=== PATIENT | male | born 1930 | race Caucasian/White ===

== ENCOUNTER 2017-02-24 11:59 | Outpatient (CLI) | payer MEDICARE, BC ==
[2017-02-24] VITALS (8 sets, daily range): BP systolic 139–175; BP diastolic 70–87; PULSE 51–62; RESP 11–17; TEMP 97.4–97.8; O2SAT 95–99; Ht 185.4 cm; Wt 84.3 kg
[~2017-02-24] VITALS: Ht 185.4 cm; Wt 84.3 kg
[~2017-02-24 11:59] MED LIST: ASPI-558 PO; CIPR-151 PO; DOXA2TAB46 PO; LISI-15 PO; NORMAL SALINE 1,000 ML IV SCH; PRAV40TA46 PO
--- NOTE | 2017-02-24 12:15 | NUR ---
ADMISSION PATIENT ADMITTED TO ROOM 120 AT THIS TIME. PT AMBULATORY. PT APPEARS TO BE IN NO ACUTE DISTRESS. A/OX3. FAMILY AT BEDSIDE. PT GIVEN INSTRUCTIONS ON GOWN/SOCKS. WILL CONTINUE TO MONITOR.
[2017-02-24] MEDS ORDERED: LISI40TA4 PO (12:36)
[2017-02-24] MEDS ORDERED: CARV12.52 PO (12:36)
[2017-02-24] MEDS ORDERED: SPIR25TA4 PO (12:36)
[2017-02-24] MEDS ORDERED: LIDOCAINE 1% (10mg/ml) 30ml SDV ONE (12:36)
[2017-02-24] MEDS ORDERED: LUTE6CAP2 PEG (12:36)
[2017-02-24] MEDS ORDERED: HEPARIN 1,000units in NS 500ml BAG IV ONE (12:36)
[2017-02-24] MEDS ORDERED: MIDAZOLAM 2mg/2ml INJECTION ONE (13:13)
[2017-02-24] MEDS ORDERED: FENTANYL 100mcg/2ml INJECTION ONE (13:13)
[2017-02-24 13:23] LABS: BASOPHILS % (AUTO) 0.2 % (0-2); EOSINOPHILS # (AUTO) 0.4 T/MM3 (0-0.5); EOSINOPHILS % (AUTO) 6.5 % (0-4); HCT - HEMATOCRIT 38.5 % (41-53); HGB - HEMOGLOBIN 12.6 GM/DL (13.5-17.5); IMMATURE GRANULOCYTE # (AUTO) 0.01 T/MM3 (0.00-0.03); IMMATURE GRANULOCYTE % (AUTO) 0.2 % (0.0-0.5); LYMPHOCYTES # (AUTO) 1.5 T/MM3 (1-4.8); LYMPHOCYTES % (AUTO) 25.2 % (23-45); MEAN CORPUSCULAR HGB 29.9 UUG (26-34); MEAN CORPUSCULAR HGB CONC(MCHC 32.7 GM/DL (31-37); MEAN CORPUSCULAR VOLUME 91.2 UM3 (80-100); MEAN PLATELET VOLUME 10.2 UM3 (9.4-12.4); MONOCYTES # (AUTO) 0.7 T/MM3 (0-0.8); MONOCYTES % (AUTO) 11.8 % (0-9.0); NEUTROPHILS #(AUTO)-ABSOLUTE 3.4 T/MM3 (1.8-7.7); NEUTROPHILS % (AUTO) 56.1 % (33-66); RED BLOOD COUNT 4.22 M/MM3 (4.50-5.90)
[2017-02-24 13:29] LABS: ANION GAP 11 MEQ/L (5-15); BUN/CREATININE RATIO 36 RATIO (6-26); CALCIUM 9.6 MG/DL (8.4-10.2); CHLORIDE 111 MEQ/L (98-107); CO2 - CARBON DIOXIDE 25 MEQ/L (22-30); CREATININE 0.8 MG/DL (0.8-1.5); GLOMERULAR FILTRATION RATE 91; GLUCOSE 86 MG/DL (75-110); POTASSIUM 4.1 MEQ/L (3.6-5); SODIUM 147 MEQ/L (134-144)
[2017-02-24] MEDS ORDERED: NITROGLYCERIN 0.4 MG SUBLINGUAL TABLET SL PRN (13:45)
[2017-02-24] MEDS ORDERED: HYDROCODONE/APAP 5 mg/325 mg TABLET PO PRN (13:45)
[2017-02-24] MEDS ORDERED: MAG-AL + SIM LIQUID 30 ML UDC PO PRN (13:45)
[2017-02-24] MEDS ORDERED: LORAZEPAM 2 MG/ML INJECTION IV PRN (13:45)
[2017-02-24] MEDS ORDERED: METOCLOPRAMIDE 10mg/2ml INJECTION IV PRN (13:45)
[2017-02-24] MEDS ORDERED: PROMETHAZINE 25 MG INJECTION IV PRN (13:45)
[2017-02-24] MEDS ORDERED: BISACODYL 5 MG E.C. TABLET PO PRN (13:45)
[2017-02-24] MEDS ORDERED: LORAZEPAM 1 MG TABLET PO PRN (13:45)
[2017-02-24] MEDS ORDERED: BISACODYL 10 MG SUPPOSITORY RECTALLY PRN (13:45)
[2017-02-24] MEDS ORDERED: ONDANSETRON 4mg/2ml INJECTION IV PRN (13:45)
[2017-02-24] MEDS ORDERED: ATROPINE 1 MG/ML VIAL IV PRN (13:45)
[2017-02-24] MEDS ORDERED: MORPHINE SULFATE 4 MG SYRINGE IV PRN ×2 (13:45)
[2017-02-24] MEDS ORDERED: ACETAMINOPHEN 325 MG TABLET PO PRN (13:45)
[2017-02-24] MEDS ORDERED: MILK OF MAGNESIA 30 ML SUSP PO PRN (13:45)
--- NOTE | 2017-02-24 13:50 | NUR ---
NAT JOHNS IN TO VISIT PATIENT, HE IS NOT IN THE ROOM. NO FAMILY IS PRESENT. CM LEFT CONTACT INFORMATION.
--- NOTE | 2017-02-24 13:50 | NUR ---
FROM HEART CATH PATIENT ARRIVED FROM HEART CATH AT THIS TIME. A/OX3. SLIDE BOARD USED TO TRANSFER PT OVER TO SURGICAL UNIT BED. POST OP VITALS BEGAN. FIRST SET STABLE. ROOM AIR. AFEBRILE. DENIES N/V, CHEST PAIN, AND SOA. RIGHT GROIN CLEAN, DRY, INTACT. NO S/S OF BLEEDING, HEMATOMA, EDEMA. WILL CONTINUE TO MONITOR.
--- NOTE | 2017-02-24 15:00 | NUR ---
CM CM IN TO VISIT PATIENT, HE IS A&O. NO FAMILY IS PRESENT. PATIENT PLANS TO DISCHARGE HOME, DENIES NEEDS. CM CONTACT INFORMATION GIVEN. Addendum: 02/24/17 at 1500 by JEFERSON OSCAR RN Amended: Links added.
--- NOTE | 2017-02-24 17:15 | NUR ---
DISMISSAL PATIENT DISMISSED TO HOME FOR SELF-CARE TO THE ER ENTRANCE. PT AMBULATORY. PT STABLE AND ON ROOM AIR AT TIME OF DISMISSAL. PERSONAL BELONGINGS AND HOME MEDS SENT WITH PATIENT. IV CATHETER REMOVED AND IV CATHETER TIP INTACT. D/C INSTRUCTIONS REVIEWED PRIOR TO D/C. TOPICS DISCUSSED INCLUDED: MEDICATIONS, S/S TO REPORT, FOLLOW UP APPOINTMENTS, AND GROIN/MYNX CARE. PATIENT AND FAMILY VERBALIZED UNDERSTANDING.
--- NOTE | 2017-02-25 09:10 | CVPROF ---
DATE OF PROCEDURE: February 24, [address] Noble Amaya. The patient is a pleasant 87-year-old gentleman with history of coronary artery disease and coronary artery bypass graft with abnormal stress test and was referred for further evaluation by cardiac catheterization and possible intervention. Informed consent was obtained after explaining the procedure and the potential risks to the patient who agreed to proceed with the procedure. PROCEDURE 1. Left heart catheterization. 2. Coronary angiography. 3. Left ventriculography. 4. Selective CASTRO angiography. 5. Right femoral angiography to visualize the vessel for Mynx deployment. 5. Successful Mynx deployment for hemostasis. TECHNIQUE The patient was prepped and draped in the usual sterile techniques. Conscious sedation was performed using Versed and fentanyl. 1% lidocaine was used for local anesthesia. Using modified Seldinger technique, arterial access was obtained into the right femoral artery with placement of a 6-Occitan arterial sheath. LEFT VENTRICULOGRAPHY Left ventriculography in single-plane SCHULZ shallow projection showed global hypokinesia with ejection fraction of about 35% with no mitral regurgitation or gradient across the aortic valve. LVEDP was about 9. CORONARY ANGIOGRAPHY Left main was free of significant lesions. Left anterior descending artery was occluded after the first septal and diagonal branches. Left circumflex and marginals had minor irregularities but no significant lesions. Right coronary artery was a medium caliber vessel which was dominant with about 30% proximal stenosis. CASTRO to LAD was widely patent with excellent flow. Right femoral angiography showed patent common femoral, proximal SFA and profunda and therefore Mynx was used for hemostasis. IMPRESSION 1. Coronary artery disease as described above, but the patient appears to be well vascularized. 2. Global hypokinesia with ejection fraction of about 35%. 3. Successful Mynx deployment for hemostasis. PLAN Medical management. MAJOD
== END 2017-02-24 17:15 | disposition home or self-care (01) ==
LOC: CATH 11:59 → SRG 12:06 → CATH 17:15
PROVIDERS: ATTEND Internal Medicine Cardiovascular Disease
DX: I25.810 Atherosclerosis of coronary artery bypass graft(s) without angina pectoris (principal); R94.39 Abnormal result of other cardiovascular function study; I25.5 Ischemic cardiomyopathy; I10 Essential (primary) hypertension; E78.2 Mixed hyperlipidemia; Z79.82 Long term (current) use of aspirin; Z79.899 Other long term (current) drug therapy; Z87.891 Personal history of nicotine dependence; Z82.49 Family history of ischemic heart disease and other diseases of the circulatory system
CPT/HCPCS: 80048; 85025; 93005; 93458; 93459; C1760; C1893; J1644; J2250; J3010; J7030; Q9967